=== PATIENT | male | born 1980 | race Caucasian/White ===

== ENCOUNTER 2020-01-04 22:26 | Emergency (ER) | payer BC, SELFPAY ==
[2020-01-04 22:28] VITALS: BP 151/93; PULSE 81; RESP 16; TEMP 36.6; O2SAT 97; BMI 44.9
[2020-01-04 23:03] LABS: Absolute Lymphocyte Count 3.69 X10^3/uL (0.83-4.51); Absolute Neutrophil Count 7.8 X10^3/uL (2.0-7.7); Bacteria 0 SEEN /hpf (None Seen); Basophil# 0.07 X10^3/uL; Basophil% 0.5 % (0-1); Eosinophil# 0.22 X10^3/uL; Eosinophils% 1.7 % (0-5); Hemoglobin 15.1 g/dL (13.0-16.5); Lymphocyte # 3.69 X10^3/ul (4.0); Lymphocyte % 28.9 % (19-41); Mean Corp Hgb Conc 33.6 g/dL (32-36); Mean Corpuscular Hgb 31.3 pg (27.0-32.0); Mean Corpuscular Volume 93.2 fL (80-94); Mean Platelet Vol. 9.4 fl (6.2-12.0); Mucous, Urine 0 SEEN /hpf (<or=2+); NRBC Flagged by Analyzer 0 % (0-5); Neutrophil % 61.1 % (47-70); Platelet Count 373 K/mm3 (150-450); RBC Distribution Width CV 11.8 % (11.6-14.6); RBC Distribution Width SD 39.5 fl (35.1-43.9); Red Blood Cells-Urine 0 SEEN /hpf (0-5); Red Blood Count 4.83 M/mm3 (4.6-6.2); Squamous Epithelial Cells - UA 0 SEEN /hpf (0-5); White Blood Cells 0 SEEN /hpf (0-5); White Blood Count 12.8 K/mm3 (4.4-11.0)
[2020-01-04] MEDS: Ondansetron 4 MG/2 ML Vial IV (23:03)
[2020-01-04 23:05] LABS: Color, Urine Yellow (Yellow); Glucose, Dipstick Normal (Normal); Ketone-Dipstick Negative (Negative); Leukocyte Esterase-Dipstick 25 /ul (Negative); Nitrite-Dipstick Negative (Negative); Occult Blood-Urine Negative /ul (Negative); Protein-Dipstick Negative (Negative); Specific Gravity, Urine 1.015 (1.002-1.030); Urine Bilirubin Dipstick Negative (Negative); Urine Clarity Clear (Clear); Urine Urobilinogen Normal (Normal)
--- NOTE | 2020-01-04 23:11 | EKG12_ITS ---
Test Reason : GI/CARDIAC Blood Pressure : / mmHG Vent. Rate : 082 BPM Atrial Rate : 082 BPM P-R Int : 146 ms QRS Dur : 096 ms QT Int : 372 ms P-R-T Axes : 041 039 -06 degrees QTc Int : 434 ms Normal sinus rhythm Normal ECG Confirmed by SHANNON SKY ([id number]), script editor KYA BALTAZAR ([id number]) on 01/11/2020 12:08:09 PM Referred By: DENNIS Confirmed By:SHANNON SKY
[2020-01-04 23:19] LABS: AST(SGOT) 96 U/L (15-37); Alanine Aminotransfer ALT/SGPT 99 U/L (16-61); Albumin, Serum 3.9 g/dL (3.2-5.0); Alkaline Phosphatase 93 U/L (45-117); Anion Gap 7 (5-15); BUN 17 mg/dL (7-18); BUN/Creat Ratio 14.9 RATIO (10-20); Calcium,Total 8.4 mg/dL (8.5-10.1); Chloride 107 mmol/L (98-107); Creatinine, Serum 1.14 mg/dL (0.70-1.30); EST Glomerular Filtration Rate 76 mL/min (>60); Est Glom Filt Rate - Afr Amer 91 mL/min (>60); Estimated Creatinine Clearance 97.34 ml/min; Globulin 3.9 g/dL (2.2-4.2); Glucose 134 mg/dL (74-106); Lipase 196 U/L (73-393); Potassium 3.7 mmol/L (3.5-5.1); Protein, Total 7.8 g/dL (6.4-8.2); Sodium Level 140 mmol/L (136-145)
[2020-01-04] MEDS: Mag Hydrox/Al Hydrox/Simeth 30 ML UDC PO (23:19)
[2020-01-04] MEDS: 0.9% Normal Saline 1,000 ML 999 ML IV (23:24)
[2020-01-04] MEDS: Famotidine 200 MG/20 ML MDV 20 MG in 0.9% Normal Saline (Pres. free 8 ML 300 MG IV (23:40)
--- NOTE | 2020-01-04 23:42 | ED.VIS.GI ---
History of Present Illness Chief Complaint: Abd Pain Informant: Patient - Abdominal Pain/Flank Pain Onset: Today Context: Sudden Onset Timing: Intermittent Quality: Burning Location: Epigastric - Nausea/Vomiting/Emesis GI Symptom: Nausea, Vomiting Onset: Today - Diarrhea/Melena/Hematochezia GI Symptom: Negative for: Diarrhea, Melena, Hematochezia Narrative: Patient is a 39-year-old male with history of acid reflux presenting with epigastric abdominal pain. Patient states he has similar episode about 5 days ago. He states he suddenly had pain in his epigastric region that woke him up from sleep. He states he could not get comfortable and then felt like there is a gas bubble that burst and then suddenly felt better. Tonight the same thing happened again. At this time he had episode of vomiting. He states he is having a hard time finding position of comfort. He describes the pain as alternating between dull and sharp. He denies any radiation of the pain. Patient states he feels short of breath but only because it hurts to take a deep breath. He denies any associated urinary symptoms. He denies any black or bloody stools. Patient denies any alcohol use but states he does have a history of acid reflux. He did eat breakfast for dinner which included eggs, biscuits and sausage gravy and he states it was all covered in hot sauce. Patient not taking any risks symptoms prior to arrival. He denies any associated chest pain. He denies any other complaints at this time. Past Medical History - Allergies and Home Meds Allergies/Adverse Reactions: Allergies No Known Allergies Allergy (Verified 01/04/20 22:30) Primary Care Physician: Care Physician,No Primary [Primary Care Provider] - Past Medical History: - - Acid reflux Surgical History: no surgical history Smoking Status: Current every day smoker Review of Systems General: Denies: Chills, Fever, Sweats Eyes: Denies: Visual changes - bilaterally, Diplopia ENT: Denies: Rhinorrhea, Sore throat Cardiovascular: Denies: Chest pain, Palpitations Respiratory: Denies: Dyspnea, Cough, Dyspnea on exertion Gastrointestinal: Reports: Abdominal pain, Nausea, Vomiting. Denies: Diarrhea, Melena, Hematochezia Genitourinary: Denies: Dysuria, Hematuria, Frequency Musculoskeletal: Denies: Back pain, Extremity Pain Skin: Denies: Rash, Wounds Neurological: Denies: Headache, Weakness, Numbness Physical Exam Vital Signs/Narrative: Vital Signs Temp Pulse Resp BP Pulse Ox 01/04/20 22:28 97.9 F 81 16 151/93 H 97 Inital Vital Signs reviewed: Yes General: Well nourished, Well developed, Obese, No Acute Distress Head: Normocephalic, Atraumatic Eyes: Perrl, EOMI ENT: Moist mucous membranes, No rhinorrhea Neck: Supple, Nontender, No JVD Cardiovascular: Regular rate, Regular rhythm, No murmurs Respiratory: No distress, CTA bilaterally, Chest nontender Abdomen: Soft, Nontender, Nondistended, Normal bowel sounds, - - No pain at McBurney's point. Negative for: Guarding, Rebound tenderness Back: Nontender, Normal Inspection. Negative for: CVA tenderness Extremities: Nontender, No edema Skin: Normal color, No rash Neurological: Alert, Oriented x3, Cranial nerves II-XII grossly intact, Normal Strength, Normal Sensation Psychological: Normal affect, Normal Mood Diagnostic/Tx/Re-eval Laboratory Data 01/04/20 01/04/20 01/04/20 22:35 22:35 22:35 WBC 12.8 H RBC 4.83 Hgb 15.1 Hct 45.0 MCV 93.2 MCH 31.3 MCHC 33.6 RDW Std Deviation 39.5 RDW Coeff of Debora 11.8 Plt Count 373 MPV 9.4 Immature Gran % (Auto) 0.800 Neut % (Auto) 61.1 Lymph % (Auto) 28.9 [place] % (Auto) 7.0 Eos % (Auto) 1.7 Baso % (Auto) 0.5 Absolute Neuts (auto) 7.8 H Absolute Lymphs (auto) 3.69 Nucleated RBC % 0 Sodium 140 Potassium 3.7 Chloride 107 Carbon Dioxide 26.0 Anion Gap 7 BUN 17 Creatinine 1.14 Estim Creat Clear Calc 97.34 Est GFR (MDRD) Af Amer 91 Est GFR (MDRD) Non-Af 76 BUN/Creatinine Ratio 14.9 Glucose 134 H Calcium 8.4 L Total Bilirubin 0.40 AST 96 H ALT 99 H Alkaline Phosphatase 93 Troponin I Total Protein 7.8 Albumin 3.9 Globulin 3.9 Albumin/Globulin Ratio 1.0 Lipase 196 Urine Color Yellow Urine Clarity Clear Urine pH 7.0 Ur Specific S [place] 1.015 Urine Protein Negative Urine Glucose (UA) Normal Urine Ketones Negative Urine Occult Blood Negative Urine Nitrite Negative Urine Bilirubin Negative Urine Urobilinogen Normal Ur Leukocyte Esterase 25 H Urine RBC 0 SEEN Urine WBC 0 SEEN Ur Squamous Epith Cells 0 SEEN Urine Bacteria 0 SEEN Urine Mucus 0 SEEN 01/04/20 22:35 WBC RBC Hgb Hct MCV MCH MCHC RDW Std Deviation RDW Coeff of Debora Plt Count MPV Immature Gran % (Auto) Neut % (Auto) Lymph % (Auto) [place] % (Auto) Eos % (Auto) Baso % (Auto) Absolute Neuts (auto) Absolute Lymphs (auto) Nucleated RBC % Sodium Potassium Chloride Carbon Dioxide Anion Gap BUN Creatinine Estim Creat Clear Calc Est GFR (MDRD) Af Amer Est GFR (MDRD) Non-Af BUN/Creatinine Ratio Glucose Calcium Total Bilirubin AST ALT Alkaline Phosphatase Troponin I < 0.015 Total Protein Albumin Globulin Albumin/Globulin Ratio Lipase Urine Color Urine Clarity Urine pH Ur Specific S [place] Urine Protein Urine Glucose (UA) Urine Ketones Urine Occult Blood Urine Nitrite Urine Bilirubin Urine Urobilinogen Ur Leukocyte Esterase Urine RBC Urine WBC Ur Squamous Epith Cells Urine Bacteria Urine Mucus - Rhythm Strip Rhythm Strip: Sinus Rhythm Rate: 82 Ectopy: None - EKG Initial EKG Interpretation: Sinus Rhythm, - - Normal sinus rhythm at a rate of 82 Normal intervals Normal axis Normal ST segments no change compared to prior EKG on 11/03/2003 - Medical Decision Making Patient is a 39-year-old male presenting with epigastric pain. He has history of acid reflux. The pain is not reproducible with palpation. He feels that he needs to belch. Cardiac work-up is negative. His lab work is all grossly normal. I suspect that this is gastritis versus reflux versus ulcer. Patient is given a GI cocktail and IV Pepcid in the emergency room with improvement of his symptoms. He will be discharged home with a course of Zofran and Pepcid. He will be referred to surgery because he likely requires endoscopy. He also be referred to a primary care doctor. He is given return precautions. He is counseled on a low acid diet. Patient is counseled on signs and symptoms requiring return to the emergency room. Patient verbalizes agreement and understand this plan. Patient discharged home in stable and improved condition. ED Disposition - Plan for ED Patient: Disposition: Home or Assisted Living Diagnosis: Epigastric abdominal pain Instructions: ED PEPTIC ULCER vs GASTRITIS, ED Epigastric Pain [facility] Prescriptions: Famotidine [Pepcid] 20 mg PO BID #28 tab Transmission Status: Pending to [email or web address] #30 Ondansetron [Zofran Odt] 4 mg PO Q8H PRN PRN #10 tab PRN Reason: Nausea Transmission Status: Pending to [facility] Referrals: Stephani Henry MD [STAFF PHYSICIAN] - Brandt Dykes MD [STAFF PHYSICIAN] - Additional Instructions: I suspect your pain is from irritation of your stomach. Please stick to a low acid diet. You been started on antacid medication as well as nausea medicine as needed. Please follow-up with a primary care doctor. I did refer you to a surgeon, Dr. Dykes, if you like to follow-up for evaluation of the abdominal pain.
[2020-01-05 00:20] VITALS: BP 142/80; PULSE 80; RESP 16; O2SAT 98
== END 2020-01-05 00:25 | disposition home or self-care (01) ==
PROVIDERS: Emergency Provider Emergency Medicine
DX: R10.13 Epigastric pain (principal); K21.9 Gastro-esophageal reflux disease without esophagitis; F17.200 Nicotine dependence, unspecified, uncomplicated; E66.9 Obesity, unspecified
CPT/HCPCS: 80053; 81001; 83690; 84484; 85025; 93005; 96361; 96374; 99283; J7030; A4216; J2405; J3490

== ENCOUNTER → 2020-03-24 | Outpatient (CLI) | payer BC, SELFPAY ==
[2020-03-23 15:23] VITALS: BMI 44.9
== END | disposition home or self-care (01) ==
LOC: MTDU 04-05 15:17
PROVIDERS: Referring Provider Physician Assistant; Visit Provider Physician Assistant
DX: J02.9 Acute pharyngitis, unspecified (principal); R05 Cough; R19.7 Diarrhea, unspecified; M79.10 Myalgia, unspecified site; Z20.828 Contact with and (suspected) exposure to other viral communicable diseases
CPT/HCPCS: 87635; C9803; U0003